=== PATIENT | female | born 1960 | race Caucasian/White ===

== ENCOUNTER 2019-03-09 12:14 | Day surgery (SDC) | payer MEDICARE, BC ==
[2019-03-09] VITALS (11 sets, daily range): BP systolic 118–1265; BP diastolic 65–85; PULSE 71–97; TEMP 97.8–98.2
[~2019-03-09] VITALS: Ht 170.2 cm; Wt 77.9 kg
[2019-03-09 14:24] LABS: CALCIUM 9.2 mg/dL (8.4-10.2); CREATININE, serum 0.63 (0.52-1.25)
--- NOTE | 2019-03-09 19:30 | NUR ---
Initial shift assessment done- drowsy, taking sip of water- no nuasea,, Up to bathroom, voiding bloody urine with small clots, VSS
--- NOTE | 2019-03-09 20:30 | NUR ---
Tried to eat some supper- now nauseated, states pain is 8/10---will give zofran and wait till nausea resolves and give pain pill
--- NOTE | 2019-03-09 22:00 | NUR ---
nausea resolved but states pain 07/04 after the one percocet-- will given the second at this time
--- NOTE | 2019-03-09 23:15 | NUR ---
States would like to try some food now-- states pain is still 8,rocking in the bed--- will give B@0 suppositiory at this time--- family went home earlier- pt will stay the night for pain control-
[2019-03-10] VITALS: BP 131/65; PULSE 79; TEMP 98.1
[2019-03-10 01:03] VITALS: BP 131/66; PULSE 72; TEMP 98.2
--- NOTE | 2019-03-10 01:30 | NUR ---
States B&0 suppository was effective for a few hours- now states pain 07/04-- will give 2 percocet at this time--no nausea, did eat sandwich/pudding and applesauce without nausea
[2019-03-10 04:00] VITALS: BP 138/76; PULSE 64; TEMP 97.9
--- NOTE | 2019-03-10 05:44 | NUR ---
Has been resting quietly for the past 4 hours- VSS,, voiding light red colored urine-
--- NOTE | 2019-03-10 07:10 | NUR ---
awake resting in bed, bedside shift report received from FRANCIS Jensen
--- NOTE | 2019-03-10 07:38 | NUR ---
awake and has ordered breakfast, full assessment completed, see interventions for further info, c/o pain 04/03 and medicated with percocet 5mg 2 tabs
[2019-03-10 07:43] VITALS: BP 130/72; PULSE 68; TEMP 97.8
--- NOTE | 2019-03-10 08:29 | NUR ---
Dr Azar notified of patient staying overnight, OK to discharge when ready
--- NOTE | 2019-03-10 08:45 | NUR ---
had breakfast and tolerated well, denies nausea at this time, will take a nap and if continues without nausea will plan discharge
--- NOTE | 2019-03-10 10:12 | NUR ---
MEGHNA harding met with patient to discuss discharge plan. Patient lives in [place] with her , Sushant. Patient's PCP is Dr. Robert Madrid and she uses the [facility] out of [place]. Patient does not use any DME and is independent. Patient reported having Medicare Part A on top of [employer]. MEGHNA harding contactd Geovanna with [employer]. Geovanna confirmed this and added Medicare Part A to patient's account. Patient is to discharge today (03/10) back home with her . No additional needs.
--- NOTE | 2019-03-10 10:45 | NUR ---
c/o pain and requesting B&O suppository, medicated with this,
--- NOTE | 2019-03-10 10:53 | NUR ---
Initial visit; Patient thanked Cardiac/Vascular Sonographer for offering get well wishes and God's blessings.
[2019-03-10] MEDS ORDERED: PYRIDIUM 100MG100 MG PO (11:15)
--- NOTE | 2019-03-10 11:32 | NUR ---
discharge instructions given to patient and her , verbalizes understanding
--- NOTE | 2019-03-10 11:45 | NUR ---
discharged per WC
== END 2019-03-10 11:45 | disposition home or self-care (01) ==
LOC: SURG 12:14 → SDCO 12:14 → SURG 12:27 → SDCO 16:30
PROVIDERS: Urology
DX: N20.1 Calculus of ureter (principal); N13.1 Hydronephrosis with ureteral stricture, not elsewhere classified; Z87.442 Personal history of urinary calculi; E87.6 Hypokalemia; R53.82 Chronic fatigue, unspecified; M79.7 Fibromyalgia; D51.9 Vitamin B12 deficiency anemia, unspecified; Z90.49 Acquired absence of other specified parts of digestive tract; Z90.710 Acquired absence of both cervix and uterus; Z87.891 Personal history of nicotine dependence; Z91.041 Radiographic dye allergy status; Z79.899 Other long term (current) drug therapy
CPT/HCPCS: OP; C1769; C2617; J1720; J1885; J2270; J2405; J2550; J2704; J3010; J7030; Q9967

== ENCOUNTER 2020-01-21 11:45 | Day surgery (SDC) | payer BC ==
[2020-01-21] VITALS (7 sets, daily range): BP systolic 118–128; BP diastolic 61–74; PULSE 71–78; TEMP 97.3–98.1
[~2020-01-21] VITALS: Ht 170.2 cm; Wt 76.1 kg
[~2020-01-21 11:45] MED LIST: CORTEF 20MG TAB20 MG PO; CYANOCOBAL1000 MCG/1 IM; CYMBALTA 60MG60 MG PO; DESYREL 50MG50 MG PO; ESTRADERM0.1 MG/24 TD; KLOR-CON SPRIN10 MEQ PO; MASON NATURAL2000 IU PO; NORCO 325 MG-51 TAB PO; PYRIDIUM 100MG100 MG PO; WELLBUTRIN XL150 MG PO; ZOVIRAX400 MG PO; ZOVIRAX800 MG PO
[2020-01-21] MEDS ORDERED: HCTZ 25MG TAB25 MG PO (13:15)
[2020-01-21] MEDS ORDERED: ADDERALL XR20 MG PO (13:15)
[2020-01-21] MEDS ORDERED: FLOMAX 0.40.4 MG/CAP PO (13:16)
[2020-01-21] MEDS ORDERED: ROXICODONE 55 MG/TAB PO (13:17)
[2020-01-21] MEDS ORDERED: VITAMIN D 1001000 IU PO (13:39)
--- NOTE | 2020-01-21 17:45 | NUR ---
Patient alert and oriented, answers questions appropriately. See assessment. C/o urinary frequency, no burning or hesitancy. Requests pain medications.
--- NOTE | 2020-01-21 18:50 | NUR ---
Patients out to nurses station, requests patient to be discharged. Inquired if pain medications relieved patients pain. states "no, but if she's not going to get IV pain medication, we are just going to go home". Informed we can look into additional pain medicine, states "We will just go home and take the pain medications we have there."
--- NOTE | 2020-01-21 19:30 | NUR ---
Pt dressed and ready to go home. DC'd IV site from right forearm, angiocath intact. Reviewed discharge instructions with patient and spouse.
--- NOTE | 2020-01-21 19:50 | NUR ---
Discharged to private vehicle per w/c, discharge instructions and personal belongings sent with patient.
== END 2020-01-21 19:50 | disposition home or self-care (01) ==
LOC: SDCO 11:45 → SURG 17:10 → SDCO 19:50
DX: N20.2 Calculus of kidney with calculus of ureter (principal); R53.82 Chronic fatigue, unspecified; M79.7 Fibromyalgia; F32.9 Major depressive disorder, single episode, unspecified; F41.9 Anxiety disorder, unspecified; Z87.442 Personal history of urinary calculi; Z90.49 Acquired absence of other specified parts of digestive tract; Z90.710 Acquired absence of both cervix and uterus; Z80.9 Family history of malignant neoplasm, unspecified; Z83.3 Family history of diabetes mellitus; Z88.1 Allergy status to other antibiotic agents; Z91.041 Radiographic dye allergy status; Z87.891 Personal history of nicotine dependence; Z85.828 Personal history of other malignant neoplasm of skin; Z82.49 Family history of ischemic heart disease and other diseases of the circulatory system; Z79.52 Long term (current) use of systemic steroids
CPT/HCPCS: OP; C1769; C2617; J1100; J1720; J2405; J2704; J3010; J7120; Q9967

== ENCOUNTER 2023-12-21 13:44 | Day surgery (SDC) | payer BC ==
[2023-12-21] VITALS (11 sets, daily range): BP systolic 115–147; BP diastolic 78–84; PULSE 72–80; TEMP 97.3–97.6
[~2023-12-21] VITALS: Ht 170.2 cm; Wt 76.3 kg
[~2023-12-21 13:44] MED LIST changes: +ADDERALL XR20 MG PO; +FLOMAX 0.40.4 MG/CAP PO; +HCTZ 25MG TAB25 MG PO; +ROXICODONE 55 MG/TAB PO; +VITAMIN D 1001000 IU PO
--- NOTE | 2023-12-21 14:23 | NUR ---
PATIENT ARRIVED TO SURGICAL FLOOR AT APPROX 1345. PATIENT IS ALERT AND ORIETNED. AT BEDSIDE. PATIENT IS C/O LEFT SIDED FLANK PAIN AND NAUSEA W/O VOMITING. ADMISSION ASSESSMENT COMPLETE. MEDICATION REC COMPLETE. IMFORMATION PROVIDED BY PATIENT AND . PATIENT ORIENTED TO ROOM, DENIES NEEDS OR CONCERNS AT THIS TIME.
--- NOTE | 2023-12-21 14:26 | NUR ---
DR DANGELO CALLED AT 1406 AND NOTIFIED OF PATIENT'S ARRIVED. AWAITING NEW ORDERS.
[2023-12-21] MEDS ORDERED: Naloxone 0.4 MG/ML VIAL IV PRN (14:30)
[2023-12-21] MEDS ORDERED: Ondansetron 4 MG/2 ML VIAL IV PRN ×2 (14:30→16:45)
[2023-12-21] MEDS ORDERED: Ketorolac 15 MG/ML VIAL IV SCH (14:30)
[2023-12-21] MEDS ORDERED: NS 1,000 ML IV SCH (14:30)
[2023-12-21] MEDS ORDERED: Morphine 4 MG/ML VIAL IV PRN (14:30)
--- NOTE | 2023-12-21 14:35 | NUR ---
Assessment reviewed and charting reviewed.
[2023-12-21] MEDS ORDERED: dexAMETHasone 10 MG/ML VIAL ONE (15:59)
[2023-12-21] MEDS ORDERED: Ondansetron 4 MG/2 ML VIAL ONE (15:59)
[2023-12-21] MEDS ORDERED: NS 10 ML IV ONE (15:59)
[2023-12-21] MEDS ORDERED: Lidocaine PF 2% (20 MG/ML) 5 ML VIAL ONE (15:59)
[2023-12-21] MEDS ORDERED: LR 1,000 ML IV SCH (16:00)
[2023-12-21] MEDS ORDERED: fentaNYL 50 MCG/ML 2 ML VIAL ONE (16:02)
--- NOTE | 2023-12-21 16:11 | NUR ---
PATIENT DOWN TO SURGERY AT 1555. PATIENT ALERT AND ORIENTED. AT BEDSIDE.
[2023-12-21] MEDS ORDERED: Lidocaine 2% (20 MG/ML) 20 ML UROJET UR ONE ×2 (16:36→16:51)
[2023-12-21] MEDS ORDERED: HYDROmorphone 2 MG/1 ML VIAL IV PRN (16:45)
[2023-12-21] MEDS ORDERED: hydrALAZINE 20 MG/ML 1 ML VIAL IV PRN (16:45)
[2023-12-21] MEDS ORDERED: fentaNYL 50 MCG/ML 2 ML VIAL IV PRN (16:45)
[2023-12-21] MEDS ORDERED: Ketorolac 15 MG/ML VIAL IV PRN (17:00)
[2023-12-21] MEDS ORDERED: oxyCODONE/Acetaminophen 5-325 MG TAB PO PRN (17:00)
[2023-12-21] MEDS ORDERED: FLOMAX 0.40.4 MG/CAP PO (17:00)
[2023-12-21] MEDS ORDERED: Hyoscyamine 0.125 MG Sublingual TAB SL PRN (17:00)
[2023-12-21] MEDS ORDERED: PERCOCET 325 MG1 TA2 PO (17:00)
--- NOTE | 2023-12-21 17:02 | NUR ---
wafer line worker met with patient and patient's to discuss discharge planning. Patient lives in [place] with her , Sushant, P# [phone]. PCP is Dr. Madrid at [facility], Pharmacy is [facility] in [place]. No issues affording medications. No DPOA-HC, not interested in completing one during the hospital stay. Insurance is [employer] and Medicare A. NO DME and independent with [employer]. Patient is able to transport herself to and from appointments. Patient would like to return home at time of discharge. Discharge plan: Home
[2023-12-21] MEDS ORDERED: Ondansetron 4 MG/2 ML VIAL IV ONE (17:25)
[2023-12-21] MEDS ORDERED: diphenhydrAMINE 50 MG/ML 1 ML VIAL IV ONE ×2 (17:30→17:36)
[2023-12-21] MEDS ORDERED: droPERidol 2.5 MG/ML 2 ML VIAL IV ONE ×2 (17:30→17:35)
--- NOTE | 2023-12-21 17:55 | NUR ---
PATIENT BACK FROM PACU AT 1754. REPORT RECEIVED BY MATHEW BLANCO. PATIENT IS NAUSEATED AND DROWSY. POST-OP VS INITIATED. VSS. PATIENT ON 2L O2 D/T DROWSINESS.
[2023-12-21] MEDS ORDERED: Home oxyCODONE/Acetaminophen 5/325 MG #4 TAB/PACK PO ONE ×2 (18:15→21:00)
--- NOTE | 2023-12-21 18:59 | NUR ---
report received from george baldwin. pt resting in bed with at bedside. pt still very drowsy but alert and oriented. pt denies nausea. post op vital signs stable. pt denies pain at this time. call light in reach. all needs met at this time.
--- NOTE | 2023-12-21 20:42 | NUR ---
shift assessment complete, see documentation. pt reporting 7/10 abd pain. scheduled toradol administered per orders. pt ambulated to bathroom sba without issue. post op vs remain stable. call light in reach. all needs met at this time.
--- NOTE | 2023-12-21 21:20 | NUR ---
DISCHARGE INSTRUCTIONS PROVIDED. PT EDUCATION GIVEN. IV DC'D. F/U APPT DISCUSSED. MEDICATIONS REVIEWED. PT DENIES QUESTIONS OR CONCERNS. PT ESCORTED OUT WITH BELONGINGS VIA WC.
== END 2023-12-21 21:22 | disposition home or self-care (01) ==
LOC: SDCO 13:44 → SURG 13:44 → SDCO 21:22 → SURG 21:22
DX: N20.2 Calculus of kidney with calculus of ureter (principal); Z87.891 Personal history of nicotine dependence
CPT/HCPCS: OP; C1769; G0378; J0690; J1100; J1200; J1720; J1790; J1885; J2405; J2704; J3010; J7030